=== PATIENT | male | born 1950 | race Caucasian/White ===

== ENCOUNTER 2020-01-26 09:58 | Outpatient (RCR) | payer MEDICARE | END 2020-01-28 | LOC: PT 09:58 | PROVIDERS: ATTEND Specialist | DX: M47.22 Other spondylosis with radiculopathy, cervical region (principal); M25.511 Pain in right shoulder; M62.81 Muscle weakness (generalized) ==

== ENCOUNTER 2020-02-09 10:19 | Outpatient (RCR) | payer MEDICARE | END 2020-02-28 | LOC: PT 10:19 | PROVIDERS: ATTEND Specialist | DX: M47.22 Other spondylosis with radiculopathy, cervical region (principal); M53.82 Other specified dorsopathies, cervical region; M25.511 Pain in right shoulder; M62.81 Muscle weakness (generalized) | CPT/HCPCS: 97139 ==

== ENCOUNTER → 2020-02-17 | Outpatient (CLI) | payer MEDICARE ==
--- NOTE | 2020-02-17 13:06 | Diagnostic Imaging Report ---
EXAMINATION: MRI of the cervical spine without contrast HISTORY: 69-year-old male with chronic neck pain for last 6 months, worsening in the last month, the pain is radiating to the right upper extremity. COMPARISON: None available TECHNIQUE: Sagittal T1, T2, STIR; axial T2, gradient echo. FINDINGS: Curvature: Normal lordosis. Vertebrae: No evidence of neoplasm, infection, or fracture. Foramen magnum: No mass, Chiari malformation, or basilar invagination. Spinal Cord: Indentation of the ventral/dorsal cord at C4-C5 and C5-C6 due to spinal canal stenoses without abnormal signal within the cord at this time. Soft Tissues: Unremarkable. Degenerative changes: C1-C2: Unremarkable. C2-C3: Mild bilateral facet arthrosis without spinal canal or foraminal stenosis. C3-C4: Mild symmetric disc bulge, bilateral uncovertebral and facet arthrosis. Mild spinal canal, mild right and moderate left foraminal stenoses. C4-C5: Disc osteophyte complex formation, small central disc protrusion, bilateral uncovertebral and facet arthrosis. Moderate spinal canal, moderate right and severe left foraminal stenosis. C5-C6: Disc osteophyte complex formation asymmetric to the left, bilateral uncovertebral and facet arthrosis. Severe spinal canal and left foraminal stenoses, compression upon the exiting left C6 nerve root cannot be excluded. Mild right foraminal stenoses. C6-C7: Asymmetric right disc osteophyte corpus formation, bilateral uncovertebral and facet arthrosis. Moderate spinal canal stenosis. Severe right and moderate left foraminal stenoses. C7-T1: Mild disc without spinal canal or foraminal stenosis. IMPRESSION: 1. Severe degenerative spinal canal and left foraminal stenoses at C5-C6. Neurosurgery/orthopedic consultation is recommended for further evaluation. 2. Moderate degenerative spinal canal, moderate right and severe left degenerative foraminal stenosis at C4-C5. 3. Moderate degenerative spinal canal, severe right and moderate left foraminal stenosis at C6-C7. Signed by: Dr. Angie Anthony M.D. on 02/17/2020 1:02 PM
== END ==
LOC: MRI 10:35
PROVIDERS: ATTEND Specialist
DX: M47.22 Other spondylosis with radiculopathy, cervical region (principal)
CPT/HCPCS: 72141

== ENCOUNTER → 2022-02-20 | Day surgery (SDC) | payer MEDICARE ==
[~2022-02-20] MED LIST: BUPIVACAINE 0.25% 30ML SDV ONE; DEXAMETHASONE SOD PHOS INJ 4 MG/ML SDV ONE; EPHEDRINE SULFATE INJ 50 MG/ML VIAL ONE; FENTANYL CITRATE/PF 100MCG/2 ML INJ ONE; GLYCOPYRROLATE INJ 0.2 MG/ML VIAL ONE; HYDROCODON-ACE1 EA11 PO; IBUPROFEN200 MG PO; KEPPRA1000 M1 PO; LIDOCAINE HCL 2% LOCAL INJ 5 ML SDV VIAL INJ ONE; METHOCARBAMOL750 MG PO; MIDAZOLAM HCL 2 MG/2 ML VIAL ONE; MULTI-VITAMIN1 EACH PO; NEOSTIGMINE 1 MG/ML 10ML VIAL ONE; NEURONTIN300 MG PO; ONDANSETRON HCL INJ 2MG/ML 2ML 2 MG/ML VIAL ONE; POVIDONE IODINE 0.05% 0.05 % ML PO ONE; PROPOFOL IV EMULSION 10 MG/ML 20 ML VIAL ONE; ROCURONIUM BROMIDE 10 MG/ML 5ML VIAL IV ONE; ROPIVACAINE 0.5% 5 MG/ML 30 ML SDV ONE; SEVOFLURANE INHAL SOLN 250 ML PEN BTL ONE
[2022-02-20 15:00] VITALS: BP 120/67
== END | disposition home or self-care (01) ==
LOC: OR 07:24
PROVIDERS: ATTEND Specialist
DX: S42.422A Displaced comminuted supracondylar fracture without intercondylar fracture of left humerus, initial encounter for closed fracture (principal); S42.142A Displaced fracture of glenoid cavity of scapula, left shoulder, initial encounter for closed fracture; S43.422A Sprain of left rotator cuff capsule, initial encounter; S73.102A Unspecified sprain of left hip, initial encounter; C80.1 Malignant (primary) neoplasm, unspecified; R53.1 Weakness; M54.2 Cervicalgia; R00.1 Bradycardia, unspecified; W11.XXXA Fall on and from ladder, initial encounter; Z01.810 Encounter for preprocedural cardiovascular examination; Z01.812 Encounter for preprocedural laboratory examination; Z01.818 Encounter for other preprocedural examination; Z20.822 Contact with and (suspected) exposure to COVID-19; Z79.899 Other long term (current) drug therapy; Z91.048 Other nonmedicinal substance allergy status; Z85.118 Personal history of other malignant neoplasm of bronchus and lung; Z87.891 Personal history of nicotine dependence
CPT/HCPCS: 0223U; 24546; 36415; 71046; 76000; 93005; C1713 ×20; J0690; J1100; J2001; J2250; J2405; J2704; J2710; J2795; J3010

== ENCOUNTER 2022-02-21 02:17 | Emergency (ER) | payer MEDICARE ==
[~2022-02-21] VITALS: Ht 170.2 cm; Wt 65.8 kg
[~2022-02-21 02:17] MED LIST changes: -BUPIVACAINE 0.25% 30ML SDV ONE; -DEXAMETHASONE SOD PHOS INJ 4 MG/ML SDV ONE; -EPHEDRINE SULFATE INJ 50 MG/ML VIAL ONE; -FENTANYL CITRATE/PF 100MCG/2 ML INJ ONE; -GLYCOPYRROLATE INJ 0.2 MG/ML VIAL ONE; -HYDROCODON-ACE1 EA11 PO; -LIDOCAINE HCL 2% LOCAL INJ 5 ML SDV VIAL INJ ONE; -MIDAZOLAM HCL 2 MG/2 ML VIAL ONE; -NEOSTIGMINE 1 MG/ML 10ML VIAL ONE; -ONDANSETRON HCL INJ 2MG/ML 2ML 2 MG/ML VIAL ONE; -POVIDONE IODINE 0.05% 0.05 % ML PO ONE; -PROPOFOL IV EMULSION 10 MG/ML 20 ML VIAL ONE; -ROCURONIUM BROMIDE 10 MG/ML 5ML VIAL IV ONE; -ROPIVACAINE 0.5% 5 MG/ML 30 ML SDV ONE; -SEVOFLURANE INHAL SOLN 250 ML PEN BTL ONE
[2022-02-21] MEDS ORDERED: Morphine 4mg INJECTION 4 MG/ML INJ IM STA (02:22)
[2022-02-21] MEDS ORDERED: ONDANSETRON HCL 4 MG ORAL DISINTEGRATING TAB PO STA (02:22)
[2022-02-21] MEDS ORDERED: ONDANSETRON HCL INJ 2MG/ML 2ML 2 MG/ML VIAL IM STA (02:35)
[2022-02-21] MEDS ORDERED: ONDANSETRON HCL INJ 2MG/ML 2ML 2 MG/ML VIAL ONE (02:41)
[2022-02-21] MEDS ORDERED: Morphine 2mg Syringe 2 MG/ML SYR ONE (02:42)
[2022-02-21] MEDS ORDERED: FENTANYL CITRATE/PF 100MCG/2 ML INJ IV ONE (03:15)
[2022-02-21] MEDS ORDERED: HYDROCODON-ACE1 EA11 PO (03:29)
[2022-02-21] MEDS ORDERED: FENTANYL CITRATE/PF 100MCG/2 ML INJ IJ ONE ×2 (03:30)
[2022-02-21 03:31] VITALS: BP 119/68
== END 2022-02-21 03:36 | disposition home or self-care (01) ==
LOC: ER 02:24
DX: G89.18 Other acute postprocedural pain (principal); R11.0 Nausea
CPT/HCPCS: 99283; J2270; J2405; J3010